=== PATIENT | male | born 1995 | race African-American/Black ===

== ENCOUNTER 2017-08-23 14:46 | Emergency (ER) | payer SELFPAY ==
[2017-08-23 14:52] VITALS: BP 117/51
--- NOTE | 2017-08-23 16:07 | ER Document Report ---
HPI - HPI Pain Level: 4 Past Medical History - Social History Family History: None, Reviewed & Not Pertinent Pulmonary Medical History: Reports: Hx Asthma Psychiatric Medical History: Reports: Hx Attention Deficit Hyperactivity Disorder - Immunizations Hx Diphtheria, Pertussis, Tetanus Vaccination: Yes Vertical Provider Document - INFECTION CONTROL TRAVEL OUTSIDE OF THE [place] IN LAST 30 DAYS: No - RESPIRATORY O2 Sat by Pulse Oximetry: 100 Course - Vital Signs Vital signs: Temp Pulse Resp BP Pulse Ox 97.6 F 61 16 117/51 L 100 08/23/17 14:51 08/23/17 14:51 08/23/17 14:51 08/23/17 14:51 08/23/17 14:51
== END 2017-08-23 16:10 | disposition left against medical advice (07) ==
LOC: ER 14:46
DX: Z53.21 Procedure and treatment not carried out due to patient leaving prior to being seen by health care provider (principal)
CPT/HCPCS: 99284

== ENCOUNTER 2017-09-14 18:42 | Emergency (ER) | payer SELFPAY ==
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
[2017-09-14] MEDS ORDERED: OXYCODONE-ACETAMINOPHEN 5-325 MG TABLET PO ONE (22:49)
[2017-09-14] MEDS ORDERED: HYDROCODONE/ACETAMINOPHEN 5-325 MG (6 TAB/ER DISP) PO PRN (22:49)
[2017-09-14] MEDS ORDERED: ONDANSETRON 4 MG TAB.RAPDIS PO ONE (22:49)
[2017-09-14] MEDS ORDERED: DIPH/PERTUSS(ACELL)/TETANUS VAC/PF 0.5 ML SYR (>=10YO) IM ONE (22:52)
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
[2017-09-14 23:16] VITALS: BP 132/88
== END 2017-09-14 23:16 | disposition home or self-care (01) ==
LOC: ER 18:42
DX: S01.402A Unspecified open wound of left cheek and temporomandibular area, initial encounter (principal); W34.010A Accidental discharge of airgun, initial encounter; F17.200 Nicotine dependence, unspecified, uncomplicated; J45.909 Unspecified asthma, uncomplicated
CPT/HCPCS: 99283; 90471; 70110; 90715; S0119

== ENCOUNTER 2018-02-23 15:49 | Emergency (ER) | payer SELFPAY ==
[2018-02-23 16:17] VITALS: BP 125/65
--- NOTE | 2018-02-23 16:49 | ER Document Report ---
ED Medical Screen (RME) - General Chief Complaint: Laceration Stated Complaint: HEAD INJURY Time Seen by Provider: 02/23/18 16:48 Notes: Patient sustained a small cut above the left eyebrow while at work. He was using some cutting device that hit him in that he has been because the cut. It is about 2 cm in length. No other injury. Vision normal. TRAVEL OUTSIDE OF THE [place] IN LAST 30 DAYS: No - Related Data Allergies/Adverse Reactions: iodine [Iodine] Allergy (Verified 02/23/18 16:06) shrimp Allergy (Uncoded 02/23/18 16:06) Past Medical History - Social History Frequency of alcohol use: Rare Drug Abuse: None Pulmonary Medical History: Reports: Hx Asthma Renal/ Medical History: Denies: Hx Peritoneal Dialysis Psychiatric Medical History: Reports: Hx Attention Deficit Hyperactivity Disorder - Immunizations Hx Diphtheria, Pertussis, Tetanus Vaccination: Yes Physical Exam - Vital signs Vitals: Temp Pulse Resp BP Pulse Ox 97.9 F 69 18 125/65 100 02/23/18 16:15 02/23/18 16:15 02/23/18 16:15 02/23/18 16:15 02/23/18 16:15 Course - Vital Signs Vital signs: Temp Pulse Resp BP Pulse Ox 97.9 F 69 18 125/65 100 02/23/18 16:15 02/23/18 16:15 02/23/18 16:15 02/23/18 16:15 02/23/18 16:15
[2018-02-23] MEDS ORDERED: LIDOCAINE 1%/EPINEPHRINE INJ 20 ML VIAL INJ ONE (17:21)
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
--- NOTE | 2018-02-23 17:57 | RADIOLOGY REPORT (SQ) ---
EXAM DESCRIPTION: SKULL 1-3 VIEWS COMPLETED DATE/TIME: 02/23/2018 5:48 pm REASON FOR STUDY: lac, ?FB COMPARISON: None. NUMBER OF VIEWS: Three Views. TECHNIQUE: PA, Erinn's, right and left lateral views. LIMITATIONS: None. FINDINGS: SKULL: Sutures are normal. No skull fractures. OTHER: No foreign body. IMPRESSION: No foreign body. TECHNICAL DOCUMENTATION: JOB ID: [id number] [employer]- All Rights Reserved Reading location - IP/workstation name: [email or web address]
== END 2018-02-23 19:06 | disposition home or self-care (01) ==
LOC: ER 15:49
DX: S01.112A Laceration without foreign body of left eyelid and periocular area, initial encounter (principal); W20.8XXA Other cause of strike by thrown, projected or falling object, initial encounter; Y93.89 Activity, other specified; F17.200 Nicotine dependence, unspecified, uncomplicated; J45.909 Unspecified asthma, uncomplicated
CPT/HCPCS: 99283; 70250; 12011; J3490

== ENCOUNTER 2018-03-25 09:16 | Emergency (ER) | payer SELFPAY ==
[2018-03-25 09:22] VITALS: BP 119/72
--- NOTE | 2018-03-25 09:41 | ER Document Report ---
HPI - HPI Pain Level: Denies Notes: Patient is a 22-year-old male who presents with chief complaint of possible STD. Patient reports that over the last 2-3 days he has been having a whitish yellow discharge from his penis. This morning he woke up stating that it junior when he urinates. Patient also states he has a lump in his groin. Past Medical History - General Information source: Patient - Social History Smoking Status: Current Some Day Smoker Frequency of alcohol use: Occasional Drug Abuse: None Family History: None, Reviewed & Not Pertinent Pulmonary Medical History: Reports: Hx Asthma Renal/ Medical History: Denies: Hx Peritoneal Dialysis Psychiatric Medical History: Reports: Hx Attention Deficit Hyperactivity Disorder Surgical Hx: Negative - Immunizations Hx Diphtheria, Pertussis, Tetanus Vaccination: Yes Vertical Provider Document - CONSTITUTIONAL Notes: PHYSICAL EXAMINATION: GENERAL: Well-appearing, well-nourished and in no acute distress. HEAD: Atraumatic, normocephalic. EYES: Pupils equal round extraocular movements intact, conjunctiva are normal. ENT: Nares patent NECK: Normal range of motion LUNGS: No respiratory distress Musculoskeletal: Normal range of motion, palpable lymph nodes to the right inguinal canal. NEUROLOGICAL: Normal speech, normal gait. PSYCH: Normal mood, normal affect. SKIN: Warm, Dry, normal turgor, no rashes or lesions noted. - INFECTION CONTROL TRAVEL OUTSIDE OF THE [place] IN LAST 30 DAYS: No Course - Re-evaluation Re-evalutation: 03/25/18 09:40 Patient denies any testicular pain or fever. Unknown what STD he may have been exposed to as he states he is in a monogamous relationship for the last 8 years. Urinalysis will be performed we will treat for UTI if present. GC chlamydia ordered. Will treat patient for gonorrhea and chlamydia will call him if there are positive results. Patient is agreeable to this plan. - Vital Signs Vital signs: Temp Pulse Resp BP Pulse Ox 97.6 F 56 L 14 119/72 99 03/25/18 09:20 03/25/18 09:20 03/25/18 09:20 03/25/18 09:20 03/25/18 09:20 Discharge - Discharge Clinical Impression: std check, Dysuria, Penile discharge Condition: Stable Disposition: HOME, SELF-CARE Additional Instructions: Your urinalysis today was negative for infection. The chlamydia and gonorrhea testing is pending in the lab this will take several hours. I am treating you for both chlamydia and gonorrhea with one-time dose of Rocephin and azithromycin. No sexual intercourse until all symptoms cleared. We will call you if the results of your test are positive.
[2018-03-25 10:21] LABS: APPEARANCE,URINE CLEAR; BILIRUBIN,URINE NEGATIVE (NEGATIVE); COLOR,URINE YELLOW; GLUCOSE, URINE NEGATIVE (NEGATIVE); KETONES,URINE NEGATIVE (NEGATIVE); LEUKOCYTE ESTERASE,URINE NEGATIVE (NEGATIVE); NITRITE,URINE NEGATIVE (NEGATIVE); PROTEIN,URINE NEGATIVE (NEGATIVE); URINE SPECIFIC GRAVITY 1.031
[2018-03-25] MEDS ORDERED: LIDOCAINE 1% INJ-PF (10 MG/ML) 30 ML SDV INJ ONE (10:26)
[2018-03-25] MEDS ORDERED: CEFTRIAXONE INJ 250 MG VIAL IM ONE (10:26)
[2018-03-25] MEDS ORDERED: AZITHROMYCIN 250 MG TABLET PO ONE (10:27)
[2018-03-25 11:49] LABS: CHLAM PCR DETECTED (NOT DETECT); GON PCR NOT DETECTED (NOT DETECT)
== END 2018-03-25 11:00 | disposition home or self-care (01) ==
LOC: ER 09:16
DX: Z20.2 Contact with and (suspected) exposure to infections with a predominantly sexual mode of transmission (principal); R30.0 Dysuria; R36.9 Urethral discharge, unspecified; F17.200 Nicotine dependence, unspecified, uncomplicated; J45.909 Unspecified asthma, uncomplicated
CPT/HCPCS: 99283; 96372; 81001; 87491; 87591; J3490; J0696

== ENCOUNTER 2018-07-09 09:44 | Emergency (ER) | payer SELFPAY ==
[2018-07-09 09:56] VITALS: BP 116/40
[2018-07-09] MEDS ORDERED: AZITHROMYCIN 250 MG TABLET PO ONE (10:11)
[2018-07-09] MEDS ORDERED: LIDOCAINE 1% INJ-PF (10 MG/ML) 30 ML SDV INJ ONE (10:11)
[2018-07-09] MEDS ORDERED: CEFTRIAXONE INJ 250 MG VIAL IM ONE (10:11)
--- NOTE | 2018-07-09 10:21 | ER Document Report ---
HPI - HPI Time Seen by Provider: 07/09/18 09:55 Pain Level: Denies Notes: Patient is an otherwise healthy 22-year-old male who presents with chief complaint of request for STD check. Patient reports the female that he is having intercourse with tested positive for chlamydia last week. He denies having any symptoms. - REPRODUCTIVE Reproductive: DENIES: :, Abnormal bleeding / discharge Past Medical History - General Information source: Patient - Social History Smoking Status: Current Every Day Smoker Chew tobacco use (# tins/day): No Frequency of alcohol use: None Family History: None, Reviewed & Not Pertinent Patient has suicidal ideation: No Patient has homicidal ideation: No Pulmonary Medical History: Reports: Hx Asthma Renal/ Medical History: Denies: Hx Peritoneal Dialysis Psychiatric Medical History: Reports: Hx Attention Deficit Hyperactivity Disorder - Immunizations Hx Diphtheria, Pertussis, Tetanus Vaccination: Yes Vertical Provider Document - CONSTITUTIONAL Notes: PHYSICAL EXAMINATION: GENERAL: Well-appearing, well-nourished and in no acute distress. HEAD: Atraumatic, normocephalic. EYES: Pupils equal round extraocular movements intact, conjunctiva are normal. ENT: Nares patent NECK: Normal range of motion LUNGS: No respiratory distress Musculoskeletal: Normal range of motion NEUROLOGICAL: Normal speech, normal gait. PSYCH: Normal mood, normal affect. SKIN: Warm, Dry, normal turgor, no rashes or lesions noted. - INFECTION CONTROL TRAVEL OUTSIDE OF THE [place] IN LAST 30 DAYS: No Course - Re-evaluation Re-evalutation: Patient was treated prophylactically for both chlamydia and gonorrhea with azithromycin and Rocephin. Encourage patient to not have unprotected sex for at least 7-10 days. Encourage follow-up with health department. - Vital Signs Vital signs: Temp Pulse Resp BP Pulse Ox 97.5 F 55 L 14 116/40 L 97 07/09/18 09:53 07/09/18 09:53 07/09/18 09:53 07/09/18 09:53 07/09/18 09:53 Discharge - Discharge Clinical Impression: STD exposure Condition: Stable Disposition: HOME, SELF-CARE Additional Instructions: You were seen and treated today for possible STD exposure. We will try to call you in the next couple of hours with your test results. Please refrain from unprotected sexual intercourse for the next 7-10 days. Please follow-up with health department for any further needs regarding retesting for STDs.
[2018-07-09 11:47] LABS: CHLAM PCR NOT DETECTED (NOT DETECT); GON PCR NOT DETECTED (NOT DETECT)
== END 2018-07-09 10:30 | disposition home or self-care (01) ==
LOC: ER 09:44
DX: Z20.2 Contact with and (suspected) exposure to infections with a predominantly sexual mode of transmission (principal); F17.200 Nicotine dependence, unspecified, uncomplicated; J45.909 Unspecified asthma, uncomplicated
CPT/HCPCS: 99283; 96372; 87491; 87591; J3490; J0696

== ENCOUNTER 2018-11-09 03:47 | Emergency (ER) | payer SELFPAY ==
[2018-11-09] MEDS ORDERED: ONDANSETRON HCL INJ/PF 4 MG/2 ML SDV IV ONE (04:22)
[2018-11-09] MEDS ORDERED: SUCRALFATE 1 GM TABLET PO ONE (04:22)
[2018-11-09] MEDS ORDERED: FAMOTIDINE 20 MG TABLET PO ONE (04:22)
[2018-11-09] MEDS ORDERED: NORMAL SALINE 1000 ML 1,000 ML IV ONE (04:23)
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
[2018-11-09 04:52] LABS: ABSOLUTE LYMPHOCYTES (AUTO) 1.4 10^3/uL (0.5-4.7); ABSOLUTE MONOCYTES (AUTO) 0.4 10^3/uL (0.1-1.4); BASOPHILS % (AUTO) 0.2 % (0-2); EOSINOPHILS % (AUTO) 0.2 % (0-6); HEMATOCRIT 44.2 % (37.9-51.0); HEMOGLOBIN 14.9 g/dL (13.5-17.0); LYMPHOCYTES % (AUTO) 15.5 % (13-45); MEAN CORPUSCULAR HEMOGLOBIN 31.4 pg (27.0-33.4); MEAN CORPUSCULAR HGB CONC 33.7 g/dL (32.0-36.0); MEAN CORPUSCULAR VOLUME 93 fl (80-97); MONOCYTES % (AUTO) 4.7 % (3-13); PLATELET COUNT 185 10^3/uL (150-450); RED BLOOD COUNT 4.75 10^6/uL (4.35-5.55); RED CELL DISTRIBUTION WIDTH 12.5 % (11.5-14.0); SEGMENTED NEUTROPHILS % (AUTO) 79.4 % (42-78); TOTAL CELLS COUNTED % (AUTO) 100 %; WHITE BLOOD COUNT 8.8 10^3/uL (4.0-10.5)
[2018-11-09 05:03] LABS: ALANINE AMINOTRANSFERASE 117 U/L (21-72); ALBUMIN 4.7 g/dL (3.5-5.0); ALKALINE PHOSPHATASE 64 U/L (38-126); ANION GAP 15 (5-19); ASPARTATE AMINO TRANSFERASE 124 U/L (17-59); BILIRUBIN,DIRECT 0.3 mg/dL (0.0-0.4); BLOOD UREA NITROGEN 22 mg/dL (7-20); CALCIUM 9.5 mg/dL (8.4-10.2); CARBON DIOXIDE 24 mmol/L (22-30); CHLORIDE 101 mmol/L (98-107); GLUCOSE 83 mg/dL (75-110); LIPASE 67.7 U/L (23-300); POTASSIUM 5.1 mmol/L (3.6-5.0); SODIUM 140.4 mmol/L (137-145); TOTAL PROTEIN 8.1 g/dL (6.3-8.2)
[2018-11-09 06:00] LABS: APPEARANCE,URINE CLEAR; BILIRUBIN,URINE NEGATIVE (NEGATIVE); COLOR,URINE YELLOW; GLUCOSE, URINE NEGATIVE (NEGATIVE); KETONES,URINE 20 mg/dL (NEGATIVE); LEUKOCYTE ESTERASE,URINE NEGATIVE (NEGATIVE); NITRITE,URINE NEGATIVE (NEGATIVE); PROTEIN,URINE 30 mg/dL (NEGATIVE); URINE SPECIFIC GRAVITY 1.023; UROBILINOGEN,URINE NEGATIVE mg/dL (<2.0)
[2018-11-09 06:24] VITALS: BP 120/64
== END 2018-11-09 06:30 | disposition home or self-care (01) ==
LOC: ER 03:47
DX: E86.0 Dehydration (principal); R11.2 Nausea with vomiting, unspecified; R10.10 Upper abdominal pain, unspecified; R10.9 Unspecified abdominal pain; J45.909 Unspecified asthma, uncomplicated
CPT/HCPCS: 99284; 96361; 96374; 36415; 83690; 85025; 80053; 81001; J2405; J7030

== ENCOUNTER 2018-12-18 21:11 | Emergency (ER) | payer SELFPAY ==
[2018-12-18 21:23] VITALS: BP 126/50
== END 2018-12-18 23:30 | disposition left against medical advice (07) ==
LOC: ER 21:11
DX: Z53.21 Procedure and treatment not carried out due to patient leaving prior to being seen by health care provider (principal)
CPT/HCPCS: 87070; 87880

== ENCOUNTER 2018-12-19 07:07 | Emergency (ER) | payer SELFPAY ==
[2018-12-19] MEDS ORDERED: CEFTRIAXONE INJ 250 MG VIAL IM ONE (08:27)
[2018-12-19] MEDS ORDERED: DEXAMETHASONE SOD PHOS INJ 10 MG/1 ML VIAL IM ONE (08:27)
[2018-12-19] MEDS ORDERED: LIDOCAINE 1% INJ-PF (10 MG/ML) 30 ML SDV IM ONE (08:27)
[2018-12-19] MEDS ORDERED: CLINDAMYCIN HCL 150 MG CAPSULE PO ONE (08:28)
[2018-12-19] MEDS ORDERED: AZITHROMYCIN 250 MG TABLET PO ONE (08:28)
--- NOTE | 2018-12-19 08:33 | ER Document Report ---
HPI - HPI Time Seen by Provider: 12/19/18 08:16 Pain Level: 3 Notes: Patient is an otherwise healthy 22-year-old male presented to the emergency department with 1 day history of sore throat and penile discharge that began this morning. Patient is concerned he may have a sexually transmitted disease. Patient denies history of strep throat. He denies taking any medications for symptoms. He is speaking in full and complete sentences and swallowing without difficulty. - EENT EENT: REPORTS: Sore Throat - URINARY Urinary: REPORTS: Frequency - REPRODUCTIVE Reproductive: DENIES: : Past Medical History - General Information source: Patient - Social History Smoking Status: Current Every Day Smoker Chew tobacco use (# tins/day): No Frequency of alcohol use: Occasional Drug Abuse: None Lives with: Homeless Family History: None, Reviewed & Not Pertinent Patient has suicidal ideation: No Patient has homicidal ideation: No Pulmonary Medical History: Reports: Hx Asthma Renal/ Medical History: Denies: Hx Peritoneal Dialysis Psychiatric Medical History: Reports: Hx Attention Deficit Hyperactivity Disorder - Immunizations Hx Diphtheria, Pertussis, Tetanus Vaccination: Yes Vertical Provider Document - CONSTITUTIONAL Notes: PHYSICAL EXAMINATION: GENERAL: Well-appearing, well-nourished and in no acute distress. HEAD: Atraumatic, normocephalic. EYES: Pupils equal round extraocular movements intact, conjunctiva are normal. ENT: Nares patent, bilateral tonsillar swelling with exudates, increased swelling to the right tonsil, uvula midline, no evidence of peritonsillar abscess. NECK: Normal range of motion, mild cervical lymphadenopathy to the right side. LUNGS: No respiratory distress, lung sounds clear and equal bilaterally. Musculoskeletal: Normal range of motion NEUROLOGICAL: Normal speech, normal gait. PSYCH: Normal mood, normal affect. SKIN: Warm, Dry, normal turgor, no rashes or lesions noted. - INFECTION CONTROL TRAVEL OUTSIDE OF THE [place] IN LAST 30 DAYS: No Course - Re-evaluation Re-evalutation: Rapid strep is negative. Patient speaking in full and complete sentences, patient able to swallow without difficulty. Patient does have swelling to the right tonsil however does not look like an abscess at this point. Chlamydia gonorrhea testing are pending on the urine as well as a throat swab. - Vital Signs Vital signs: Temp Pulse Resp BP Pulse Ox 97.6 F 85 19 124/71 99 12/19/18 07:13 12/19/18 07:13 12/19/18 07:13 12/19/18 07:13 12/19/18 07:13 Discharge - Discharge Clinical Impression: Sore throat, Encounter for assessment of STD exposure Condition: Stable Disposition: HOME, SELF-CARE Additional Instructions: The rapid strep that we did today was negative which means you do not have strep throat. A throat culture is pending for both strep and chlamydia. Testing is also pending for chlamydia and gonorrhea per your request. You have been treated today with azithromycin and Rocephin for possible exposure to chlamydia and gonorrhea. It appears that you do have a small tonsillar abscess to the right tonsil. At this time this is not causing any difficulty swallowing or speaking so we will treat you with steroids and antibiotics. You were given a dose of steroids here in the emergency department today. It is very important that you get the prescription filled for the clindamycin and take the entire cou rse exactly as prescribed even if your symptoms return. You may use an rvam-amb-whuuytt throat spray or use a salt water gargles to help with throat pain. If any abnormality returns on any of the cultures someone will call you in the next 2 to 3 days. If your symptoms worsen at any time in the throat area meaning you are having difficulty swallowing, difficulty breathing or have a very hoarse voice please return to the emergency department for reevaluation. If you experience pain or fever please take Tylenol or ibuprofen as directed on the smbr-lqv-mpewpaa bottles. Prescriptions: Clindamycin HCl 300 mg PO TID #30 capsule
[2018-12-19 09:26] VITALS: BP 110/86
[2018-12-19 10:27] LABS: CHLAM PCR NOT DETECTED (NOT DETECT)
== END 2018-12-19 09:10 | disposition home or self-care (01) ==
LOC: ER 07:07
DX: J02.9 Acute pharyngitis, unspecified (principal); R36.9 Urethral discharge, unspecified; R35.0 Frequency of micturition; Z20.2 Contact with and (suspected) exposure to infections with a predominantly sexual mode of transmission; J45.909 Unspecified asthma, uncomplicated; F17.200 Nicotine dependence, unspecified, uncomplicated; Z59.0 Homelessness
CPT/HCPCS: 99283; 96372; 87491 ×2; 87591 ×2; 87070; 87880; J3490; J0696; J1100

== ENCOUNTER 2019-07-03 13:26 | Emergency (ER) | payer OTHER ==
[2019-07-03 13:54] LABS: ARTERIAL BLOOD BASE EXCESS -0.2 mmol/L; ARTERIAL BLOOD H2CO3 0.94 mmol/L (1.05-1.35); ARTERIAL BLOOD HCO3 22.4 mmol/L (20-24); ARTERIAL BLOOD O2 SATURATION 99.8 % (94-98); ARTERIAL BLOOD PCO2 31.2 mmHg (35-45); ARTERIAL BLOOD PH 7.47 (7.35-7.45); ARTERIAL BLOOD PO2 317.1 mmHg (80-100); ARTERIAL BLOOD TOTAL CO2 23.3 mmol/L (23-27)
[2019-07-03 13:55] LABS: ARTERIAL BLOOD FIO2 15L
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
[2019-07-03 14:20] LABS: APPEARANCE,URINE CLEAR; BILIRUBIN,URINE NEGATIVE (NEGATIVE); COLOR,URINE YELLOW; GLUCOSE, URINE NEGATIVE (NEGATIVE); KETONES,URINE NEGATIVE (NEGATIVE); LEUKOCYTE ESTERASE,URINE NEGATIVE (NEGATIVE); NITRITE,URINE NEGATIVE (NEGATIVE); PROTEIN,URINE NEGATIVE (NEGATIVE); UROBILINOGEN,URINE NEGATIVE mg/dL (<2.0)
[2019-07-03 14:20] LABS: ALBUMIN 4.5 g/dL (3.5-5.0); ALKALINE PHOSPHATASE 58 U/L (38-126); ANION GAP 8 (5-19); ASPARTATE AMINO TRANSFERASE 48 U/L (17-59); BILIRUBIN,DIRECT 0.1 mg/dL (0.0-0.4); BILIRUBIN,TOTAL 1.9 mg/dL (0.2-1.3); BLOOD UREA NITROGEN 16 mg/dL (7-20); CALCIUM 9.2 mg/dL (8.4-10.2); CARBON DIOXIDE 27 mmol/L (22-30); CHLORIDE 104 mmol/L (98-107); GLUCOSE 74 mg/dL (75-110); POTASSIUM 4.4 mmol/L (3.6-5.0)
[2019-07-03 14:31] LABS: CREATINE KINASE MB 1.11 ng/mL (<4.55)
[2019-07-03 14:34] LABS: TROPONIN I < 0.012 ng/mL
[2019-07-03 14:37] LABS: URINE AMPHETAMINES SCREEN NEGATIVE; URINE BARBITURATES SCREEN NEGATIVE; URINE BENZODIAZEPINES SCREEN NEGATIVE; URINE METHADONE SCREEN NEGATIVE
[2019-07-03 14:38] LABS: URINE MARIJUANA (THC) SCREEN UNCONFIRMED POSITIVE
--- NOTE | 2019-07-03 14:55 | RADIOLOGY REPORT (SQ) ---
EXAM DESCRIPTION: CT HEAD WITHOUT COMPLETED DATE/TIME: 07/03/2019 2:41 pm REASON FOR STUDY: ams, sob COMPARISON: None. TECHNIQUE: Axial images acquired through the brain without intravenous contrast. Images reviewed wi th bone, brain and subdural windows. Additional sagittal and coronal reconstructions were generated. Images stored on PACS. All CT scanners at this facility use dose modulation, iterative reconstruction, and/or weight based d osing when appropriate to reduce radiation dose to as low as reasonably achievable (ALARA). [facility]: Dose Right [facility]: CareDose [facility]: Dose Right [facility]: Teradose 4D [facility]: TELOS RADIATION DOSE: CT Rad equipment meets quality standard of care and radiation dose reduction techniq ues were employed. CTDIvol: 53.2 mGy. DLP: 1097 mGy-cm. mGy. LIMITATIONS: None. FINDINGS: VENTRICLES: Normal size and contour. CEREBRUM: No masses. No hemorrhage. No midline shift. No evidence for acute infarction. Normal gra y/white matter differentiation. No areas of low density in the white matter. CEREBELLUM: No masses. No hemorrhage. No alteration of density. No evidence for acute infarction. EXTRAAXIAL SPACES: No fluid collections. No masses. ORBITS AND GLOBE: No intra- or extraconal masses. Normal contour of globe without masses. CALVARIUM: No fracture. PARANASAL SINUSES: No fluid or mucosal thickening. SOFT TISSUES: No mass or hematoma. OTHER: No other significant finding. IMPRESSION: NORMAL BRAIN CT WITHOUT CONTRAST. EVIDENCE OF ACUTE STROKE: NO. COMMENT: Quality ID # [id number]: Final reports with documentation of one or more dose reduction techniques (e.g., Automated exposure control, adjustment of the mA and/or kV according to patient size, use of iterative reconstruction technique) TECHNICAL DOCUMENTATION: JOB ID: [id number] [employer]- All Rights Reserved Reading location - IP/workstation name: [email or web address]
[2019-07-03 14:58] LABS: URINE COCAINE SCREEN NEGATIVE; URINE PHENCYCLIDINE SCREEN NEGATIVE
--- NOTE | 2019-07-03 15:07 | RADIOLOGY REPORT (SQ) ---
EXAM DESCRIPTION: CHEST SINGLE VIEW COMPLETED DATE/TIME: 07/03/2019 2:45 pm REASON FOR STUDY: sob COMPARISON: Two-view chest 05/28/2013 EXAM PARAMETERS: NUMBER OF VIEWS: One view. TECHNIQUE: Single frontal radiographic view of the chest acquired. RADIATION DOSE: NA LIMITATIONS: None. FINDINGS: LUNGS AND PLEURA: No opacities, masses or pneumothorax. No pleural effusion. MEDIASTINUM AND HILAR STRUCTURES: No masses. Contour normal. HEART AND VASCULAR STRUCTURES: Heart normal in size. Normal vasculature. BONES: No acute findings. HARDWARE: None in the chest. OTHER: No other significant finding. IMPRESSION: NO ACUTE RADIOGRAPHIC FINDING IN THE CHEST. TECHNICAL DOCUMENTATION: JOB ID: [id number] [employer]- All Rights Reserved Reading location - IP/workstation name: [email or web address]
[2019-07-03 16:36] LABS: ABSOLUTE EOSINOPHILS # (AUTO) 0.5 10^3/uL (0.0-0.6); ABSOLUTE LYMPHOCYTES (AUTO) 2.2 10^3/uL (0.5-4.7); ABSOLUTE MONOCYTES (AUTO) 0.4 10^3/uL (0.1-1.4); ABSOLUTE NEUT (AUTO) 0.8 10^3/uL (1.7-8.2); BASOPHILS % (AUTO) 0.5 % (0-2); EOSINOPHILS % (AUTO) 13.4 % (0-6); HEMATOCRIT 43.1 % (37.9-51.0); HEMOGLOBIN 14.9 g/dL (13.5-17.0); LYMPHOCYTES % (AUTO) 55.5 % (13-45); MEAN CORPUSCULAR HEMOGLOBIN 31.6 pg (27.0-33.4); MEAN CORPUSCULAR HGB CONC 34.5 g/dL (32.0-36.0); MEAN CORPUSCULAR VOLUME 92 fl (80-97); MONOCYTES % (AUTO) 10.1 % (3-13); PLATELET COUNT 143 10^3/uL (150-450); RED BLOOD COUNT 4.71 10^6/uL (4.35-5.55); RED CELL DISTRIBUTION WIDTH 12.2 % (11.5-14.0); SEGMENTED NEUTROPHILS % (AUTO) 20.5 % (42-78); TOTAL CELLS COUNTED % (AUTO) 100 %
[2019-07-03 17:36] LABS: A TYPE INFLUENZA AG NEGATIVE (NEGATIVE); B INFLUENZA AG NEGATIVE (NEGATIVE)
[2019-07-03 18:42] VITALS: BP 116/73
--- NOTE | 2019-07-03 21:30 | EKG REPORT ---
SEVERITY:- OTHERWISE NORMAL ECG - SINUS BRADYCARDIA : Confirmed by: Jackie Almonte MD 03-Jul-2019 21:29:35
== END 2019-07-03 18:42 | disposition home or self-care (01) ==
LOC: ER 13:26
DX: Z77.29 Contact with and (suspected) exposure to other hazardous substances (principal); R51 Headache; R42 Dizziness and giddiness; D72.820 Lymphocytosis (symptomatic); J45.909 Unspecified asthma, uncomplicated; R53.81 Other malaise; Z91.013 Allergy to seafood
CPT/HCPCS: 36415; 70450; 71045; 80053; 80307; 81001; 82375; 82553; 82803; 84484; 85025; 87804; 93005; 93010; 99291

== ENCOUNTER 2020-03-15 12:28 | Emergency (ER) | payer OTHER ==
[2020-03-15] MEDS ORDERED: DIPH/PERTUSS(ACELL)/TETANUS VAC/PF 0.5 ML SYR (>=10YO) IM ONE (13:00)
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
[2020-03-15] MEDS ORDERED: AMOXICILLIN TRIHYDRATE 500 MG CAPSULE PO ONE (15:36)
[2020-03-15] MEDS ORDERED: IBUPROFEN 600 MG TABLET PO ONE (15:42)
[2020-03-15 15:47] VITALS: BP 149/72
== END 2020-03-15 16:00 | disposition home or self-care (01) ==
LOC: ER 12:28
DX: S01.511A Laceration without foreign body of lip, initial encounter (principal); Y04.0XXA Assault by unarmed brawl or fight, initial encounter; Z88.8 Allergy status to other drugs, medicaments and biological substances; F17.200 Nicotine dependence, unspecified, uncomplicated; J45.909 Unspecified asthma, uncomplicated
CPT/HCPCS: 70450; 70486; 90471; 90715; 99284